=== PATIENT | female | born 1955 | race Hispanic/Latino ===

== ENCOUNTER 2017-10-20 04:15 | Inpatient (IN) | payer OTHER ==
[~2017-10-20] VITALS: Ht 165.1 cm; Wt 88.0 kg
[~2017-10-20 04:15] MED LIST: CEFI400C PO; VITAMIN A PO; VITAMIN B PO; VITAMIN D PO
[2017-10-20] MEDS ORDERED: ONDANSETRON HCL 4 MG/2 ML VIAL ONE ×2 (04:47→09:27)
[2017-10-20 04:50] LABS: BASOPHILS % (AUTO) 0.5 % (0.0-5.0); EOSINOPHILS % (AUTO) 1.8 % (0.0-8.0); HEMATOCRIT 32.3 % (36-48); LYMPHOCYTES % (AUTO) 22.3 % (21.0-51.0); MEAN CORPUSCULAR HEMOGLOBIN 31.1 pg (27.0-33.0); MEAN CORPUSCULAR VOLUME 86.4 fL (79-99); MONOCYTES % (AUTO) 7.4 % (3.0-13.0); PLATELET COUNT (AUTO) 202 K/uL (130-400); RED BLOOD CELL COUNT(AUTO) 3.73 MIL/uL (4.00-5.50); RED CELL DISTRIBUTION WIDTH 12.4 % (11.0-15.5); WHITE BLOOD COUNT (AUTO) 2.8 K/uL (4.8-10.8)
[2017-10-20 05:04] LABS: ALBUMIN 3.7 g/dL (3.5-5.0); BILIRUBIN,DIRECT 0.2 mg/dL (0.0-0.3); BILIRUBIN,TOTAL 0.8 mg/dL (0.2-1.0); CREATININE 0.7 mg/dL (0.5-1.5); POTASSIUM 3.7 mmol/L (3.5-5.1); TOTAL PROTEIN, SERUM 7.4 g/dL (6.0-8.3)
[2017-10-20] MEDS ORDERED: CEFTRIAXONE SODIUM 2 GM VIAL ONE (05:54)
[2017-10-20 05:57] LABS: APPEARANCE,URINE CLEAR (CLEAR); COLOR,URINE YELLOW (YELLOW); GLUCOSE, URINE (UA) NEGATIVE (NEGATIVE); PROTEIN,URINE NEGATIVE (NEGATIVE)
[2017-10-20 05:58] LABS: BILIRUBIN,URINE NEGATIVE (NEGATIVE); KETONES,URINE TRACE mg/dL (NEGATIVE); LEUKOCYTE ESTERASE ,URINE NEGATIVE (NEGATIVE); NITRATE,URINE NEGATIVE (NEGATIVE); OCCULT BLOOD,URINE NEGATIVE (NEGATIVE)
[2017-10-20] MEDS: SODIUM CHLORIDE 0.9% 1000ML 1,000 ML IV SCH ×2 (09:37→18:47)
[2017-10-20] MEDS: ONDANSETRON HCL 4 MG/2 ML VIAL IVP PRN ×2 (09:37→21:36)
[2017-10-20 10:23] VITALS: BP 132/68
[2017-10-20] MEDS ORDERED: PROMETHAZINE HCL 25 MG/ML 1ML AMPULE IM PRN (14:45)
[2017-10-20] MEDS ORDERED: CLOTRIMAZOLE 10 MG TROCHE MM SCH (14:45)
[2017-10-20 15:57] LABS: CREATININE 0.7 mg/dL (0.5-1.5); POTASSIUM 3.9 mmol/L (3.5-5.1)
[2017-10-20 17:26] VITALS: BP 119/71
[2017-10-20 20:15] VITALS: BP 113/50
[2017-10-20] MEDS: OSELTAMIVIR PHOSPHATE 75 MG CAP PO SCH (21:18)
[2017-10-21] VITALS (7 sets, daily range): BP systolic 113–132; BP diastolic 61–75
[2017-10-21] MEDS: SODIUM CHLORIDE 0.9% 1000ML 1,000 ML IV SCH ×3 (03:56→21:37)
[2017-10-21 04:22] LABS: HEMATOCRIT 27.5 % (36-48); MEAN CORPUSCULAR HEMOGLOBIN 32.4 pg (27.0-33.0); MEAN CORPUSCULAR HGB CONC 38.1 g/dL (32.0-36.0); MEAN CORPUSCULAR VOLUME 84.9 fL (79-99); NUCLEATED RED BLOOD CELLS 0.1 % (0.0-0.19); PLATELET COUNT (AUTO) 187 K/uL (130-400); RED BLOOD CELL COUNT(AUTO) 3.24 MIL/uL (4.00-5.50); RED CELL DISTRIBUTION WIDTH 12.3 % (11.0-15.5); WHITE BLOOD COUNT (AUTO) 2.4 K/uL (4.8-10.8)
[2017-10-21 04:30] LABS: CREATININE 0.6 mg/dL (0.5-1.5); POTASSIUM 3.6 mmol/L (3.5-5.1)
[2017-10-21 04:46] LABS: BAND NEUTROPHILS % (MANUAL) 20 % (0-2); LYMPHOCYTES % (MANUAL) 16 % (22-44); MONOCYTES % (MANUAL) 8 % (2-9); SEGMENTED NEUTROPHILS % 56 % (40-70)
[2017-10-21 04:47] LABS: MAN.DIFF COMMENT-IMPRESSION MANUAL DIFFERENTIAL; PLATELET MORPHOLOGY COMMENT ADEQUATE
[2017-10-21] MEDS: OSELTAMIVIR PHOSPHATE 75 MG CAP PO SCH ×2 (09:11→20:34)
[2017-10-21] MEDS ORDERED: LACTULOSE 20 GM/30 ML UDCUP PO PRN (12:00)
[2017-10-21] MEDS ORDERED: DOCUSATE SODIUM 100 MG CAP PO PRN (12:00)
[2017-10-21] MEDS ORDERED: ACETAMINOPHEN 325 MG TAB PO PRN (12:00)
[2017-10-21] MEDS: SODIUM CHLORIDE 1,000 MG TAB PO SCH (13:30)
[2017-10-21] MEDS: ONDANSETRON HCL 4 MG/2 ML VIAL IVP PRN (13:30)
[2017-10-22 03:52] VITALS: BP 111/68
[2017-10-22 04:17] LABS: HEMATOCRIT 29.2 % (36-48); MEAN CORPUSCULAR HEMOGLOBIN 31.2 pg (27.0-33.0); MEAN CORPUSCULAR HGB CONC 36.5 g/dL (32.0-36.0); MEAN CORPUSCULAR VOLUME 85.3 fL (79-99); NUCLEATED RED BLOOD CELLS 0.2 % (0.0-0.19); PLATELET COUNT (AUTO) 201 K/uL (130-400); RED BLOOD CELL COUNT(AUTO) 3.42 MIL/uL (4.00-5.50); RED CELL DISTRIBUTION WIDTH 12.4 % (11.0-15.5); WHITE BLOOD COUNT (AUTO) 2.6 K/uL (4.8-10.8)
[2017-10-22 04:25] LABS: CREATININE 0.6 mg/dL (0.5-1.5); POTASSIUM 3.8 mmol/L (3.5-5.1)
[2017-10-22 07:00] VITALS: BP 123/71
[2017-10-22] MEDS: SODIUM CHLORIDE 1,000 MG TAB PO SCH (08:52)
[2017-10-22] MEDS: SODIUM CHLORIDE 0.9% 1000ML 1,000 ML IV SCH (08:52)
[2017-10-22] MEDS: OSELTAMIVIR PHOSPHATE 75 MG CAP PO SCH ×2 (08:52→20:36)
[2017-10-22 11:00] VITALS: BP 147/77
[2017-10-22] MEDS ORDERED: IBUPROFEN 800 MG TAB PO PRN (11:15)
[2017-10-22 16:00] VITALS: BP 120/71
[2017-10-22 19:41] VITALS: BP 118/73
[2017-10-22 22:52] VITALS: BP 118/71
[2017-10-23 04:07] VITALS: BP 125/71
[2017-10-23 04:40] LABS: MEAN CORPUSCULAR HEMOGLOBIN 31.2 pg (27.0-33.0); MEAN CORPUSCULAR HGB CONC 35.9 g/dL (32.0-36.0); PLATELET COUNT (AUTO) 255 K/uL (130-400); RED BLOOD CELL COUNT(AUTO) 3.33 MIL/uL (4.00-5.50); RED CELL DISTRIBUTION WIDTH 12.3 % (11.0-15.5); WHITE BLOOD COUNT (AUTO) 2.9 K/uL (4.8-10.8)
[2017-10-23 04:46] LABS: CREATININE 0.6 mg/dL (0.5-1.5); POTASSIUM 3.5 mmol/L (3.5-5.1)
[2017-10-23] MEDS: SODIUM CHLORIDE 0.9% 1000ML 1,000 ML IV SCH (05:50)
[2017-10-23 07:26] VITALS: BP 147/72
[2017-10-23] MEDS: SODIUM CHLORIDE 1,000 MG TAB PO SCH (09:16)
[2017-10-23] MEDS: OSELTAMIVIR PHOSPHATE 75 MG CAP PO SCH (09:16)
[2017-10-23 11:15] VITALS: BP 113/67
== END 2017-10-23 11:29 | disposition home or self-care (01) | DRG 153 ==
LOC: EDH 04:15 → EDHIP 06:27 → 2AH 19:36
PROVIDERS: ADMIT Internal Medicine; ATTEND Internal Medicine
DX: J11.1 Influenza due to unidentified influenza virus with other respiratory manifestations (principal); E87.1 Hypo-osmolality and hyponatremia; E86.0 Dehydration; Z87.440 Personal history of urinary (tract) infections; Z88.1 Allergy status to other antibiotic agents
CPT/HCPCS: 36415; 74176; 80048; 80076; 81003; 82550; 83690; 84484; 85025; 85027; 87804; 93005; 99291; J0696; J2405; J7030

== ENCOUNTER 2017-10-23 19:30 | Observation (INO) | payer OTHER ==
[~2017-10-23] VITALS: Ht 165.1 cm; Wt 88.0 kg
[~2017-10-23 19:30] MED LIST changes: -CEFI400C PO
[2017-10-23 21:08] LABS: BASOPHILS % (AUTO) 0.5 % (0.0-5.0); EOSINOPHILS % (AUTO) 0.3 % (0.0-8.0); HEMATOCRIT 28.8 % (36-48); LYMPHOCYTES % (AUTO) 24.3 % (21.0-51.0); MEAN CORPUSCULAR HEMOGLOBIN 32.2 pg (27.0-33.0); MEAN CORPUSCULAR HGB CONC 36.7 g/dL (32.0-36.0); MEAN CORPUSCULAR VOLUME 87.8 fL (79-99); MONOCYTES % (AUTO) 10.5 % (3.0-13.0); NEUTROPHILS % (AUTO) 64.4 % (40.0-77.0); NUCLEATED RED BLOOD CELLS 0.1 % (0.0-0.19); PLATELET COUNT (AUTO) 277 K/uL (130-400); RED BLOOD CELL COUNT(AUTO) 3.27 MIL/uL (4.00-5.50); RED CELL DISTRIBUTION WIDTH 12.7 % (11.0-15.5); WHITE BLOOD COUNT (AUTO) 3.2 K/uL (4.8-10.8)
[2017-10-23 21:15] LABS: CREATININE 0.6 mg/dL (0.5-1.5); POTASSIUM 3.4 mmol/L (3.5-5.1)
[2017-10-23 21:18] LABS: INR 0.99 (0.85-1.15); PARTIAL THROMBOPLASTIN TIME 31.5 SEC (26.3-35.5); PROTHROMBIN TIME 10.4 SEC (9.6-11.6)
[2017-10-23 21:19] LABS: ALBUMIN 3.6 g/dL (3.5-5.0); BILIRUBIN,TOTAL 0.3 mg/dL (0.2-1.0); TOTAL PROTEIN, SERUM 7.7 g/dL (6.0-8.3)
[2017-10-23] MEDS ORDERED: ASPIRIN 325 MG TABLET ONE (22:17)
[2017-10-24] MEDS ORDERED: SODIUM CHLORIDE 0.9% 1000ML 1,000 ML IV ONE (05:55)
[2017-10-24] MEDS ORDERED: SODIUM CHLORIDE 0.9% 1000ML 1,000 ML IV SCH (08:00)
[2017-10-24] MEDS ORDERED: ENOXAPARIN SODIUM 40 MG/0.4 ML SYRINGE SQ ONE (08:06)
[2017-10-24] MEDS ORDERED: PANTOPRAZOLE SODIUM 40 MG TABLET.DR PO ONE (08:06)
[2017-10-24] MEDS ORDERED: OSELTAMIVIR PHOSPHATE 75 MG CAP ONE (08:08)
[2017-10-24 08:15] LABS: HEMATOCRIT 28.7 % (36-48); MEAN CORPUSCULAR HEMOGLOBIN 30.7 pg (27.0-33.0); MEAN CORPUSCULAR VOLUME 87.7 fL (79-99); NUCLEATED RED BLOOD CELLS 0.1 % (0.0-0.19); PLATELET COUNT (AUTO) 264 K/uL (130-400); RED BLOOD CELL COUNT(AUTO) 3.28 MIL/uL (4.00-5.50); RED CELL DISTRIBUTION WIDTH 12.6 % (11.0-15.5); WHITE BLOOD COUNT (AUTO) 2.4 K/uL (4.8-10.8)
[2017-10-24 08:39] LABS: ALBUMIN 3.4 g/dL (3.5-5.0); BILIRUBIN,TOTAL 0.3 mg/dL (0.2-1.0); CREATININE 0.6 mg/dL (0.5-1.5); POTASSIUM 3.9 mmol/L (3.5-5.1); TOTAL PROTEIN, SERUM 7.2 g/dL (6.0-8.3)
[2017-10-24] MEDS ORDERED: OSELTAMIVIR PHOSPHATE 75 MG CAP PO SCH (09:00)
[2017-10-24] MEDS ORDERED: ENOXAPARIN SODIUM 40 MG/0.4 ML SYRINGE SQ SCH (09:00)
[2017-10-24] MEDS ORDERED: PANTOPRAZOLE SODIUM 40 MG TABLET.DR PO SCH (09:00)
[2017-10-24 09:07] LABS: BAND NEUTROPHILS % (MANUAL) 2 % (0-2); BASOPHILS % (MANUAL) 2 % (0-2); EOSINOPHILS % (MANUAL) 2 % (1-6); LYMPHOCYTES % (MANUAL) 33 % (22-44); MAN.DIFF COMMENT-IMPRESSION MANUAL DIFFERENTIAL; MONOCYTES % (MANUAL) 16 % (2-9); PLATELET MORPHOLOGY COMMENT ADEQUATE; SEGMENTED NEUTROPHILS % 45 % (40-70)
== END 2017-10-24 17:07 | disposition home or self-care (01) ==
LOC: EDH 19:30 → EDHIP 10-24 00:38
PROVIDERS: ADMIT Internal Medicine; ATTEND Internal Medicine
DX: R41.82 Altered mental status, unspecified (principal); E87.1 Hypo-osmolality and hyponatremia; J11.1 Influenza due to unidentified influenza virus with other respiratory manifestations; E23.7 Disorder of pituitary gland, unspecified
CPT/HCPCS: 36415 ×2; 70450; 70544; 70547; 70551; 80053 ×2; 82140; 85025 ×2; 85610; 85730; 93005; 99285; G0378 ×16; J7030; J1650

== ENCOUNTER 2017-12-20 15:14 | Emergency (ER) | payer OTHER ==
[2017-12-20 15:50] LABS: APPEARANCE,URINE Clear (CLEAR); BILIRUBIN,URINE Negative (NEGATIVE); COLOR,URINE Yellow (YELLOW); GLUCOSE, URINE (UA) Negative (NEGATIVE); KETONES,URINE Negative (NEGATIVE); LEUKOCYTE ESTERASE ,URINE Moderate (NEGATIVE); NITRATE,URINE Negative (NEGATIVE); OCCULT BLOOD,URINE Negative (NEGATIVE); PROTEIN,URINE Negative (NEGATIVE)
[2017-12-20 15:58] LABS: RBC,URINE None Seen /HPF (0-1)
[2017-12-20 15:59] LABS: BACTERIA,URINE Few /HPF (None Seen)
[2017-12-20 16:08] LABS: BASOPHILS % (AUTO) 0.7 % (0.0-5.0); EOSINOPHILS % (AUTO) 4.2 % (0.0-8.0); HEMATOCRIT 31.5 % (36-48); LYMPHOCYTES % (AUTO) 30.9 % (21.0-51.0); MEAN CORPUSCULAR HEMOGLOBIN 32.6 pg (27.0-33.0); MEAN CORPUSCULAR HGB CONC 36.3 g/dL (32.0-36.0); MEAN CORPUSCULAR VOLUME 89.8 fL (79-99); MONOCYTES % (AUTO) 8.6 % (3.0-13.0); NEUTROPHILS % (AUTO) 55.6 % (40.0-77.0); PLATELET COUNT (AUTO) 234 K/uL (130-400); RED BLOOD CELL COUNT(AUTO) 3.51 MIL/uL (4.00-5.50); RED CELL DISTRIBUTION WIDTH 13.6 % (11.0-15.5); WHITE BLOOD COUNT (AUTO) 4.6 K/uL (4.8-10.8)
[2017-12-20 16:16] LABS: CREATININE 0.7 mg/dL (0.5-1.5); POTASSIUM 3.9 mmol/L (3.5-5.1)
[2017-12-20 16:21] LABS: BILIRUBIN,TOTAL 0.4 mg/dL (0.2-1.0)
== END 2017-12-20 17:03 | disposition home or self-care (01) ==
LOC: EDH 15:14
DX: M25.50 Pain in unspecified joint (principal); R53.83 Other fatigue; Z88.0 Allergy status to penicillin; Z88.2 Allergy status to sulfonamides; Z88.1 Allergy status to other antibiotic agents
CPT/HCPCS: 36415; 80053; 81001; 85025

== ENCOUNTER 2021-08-15 10:16 | Emergency (ER) | payer MEDICARE ==
[~2021-08-15] VITALS: Ht 165.1 cm; Wt 88.5 kg
[~2021-08-15 10:16] MED LIST changes: +ACET-2743 PO
[2021-08-15 10:17] VITALS: BP 160/96
[2021-08-15] MEDS ORDERED: KETOROLAC 15MG/ML VIAL (15MG/ML) ONE (11:14)
[2021-08-15] MEDS ORDERED: KETOROLAC 15MG/ML VIAL (15MG/ML) IV SCH (11:30)
[2021-08-15] MEDS ORDERED: 0.9%NACL 1000ML 1,000 ML IV SCH (11:30)
[2021-08-15 11:33] LABS: APPEARANCE,URINE Clear (CLEAR); BILIRUBIN,URINE Negative (NEGATIVE); COLOR,URINE Yellow (YELLOW); GLUCOSE, URINE (UA) Negative (NEGATIVE); KETONES,URINE Negative (NEGATIVE); LEUKOCYTE ESTERASE ,URINE Small (NEGATIVE); NITRATE,URINE Negative (NEGATIVE); OCCULT BLOOD,URINE Negative (NEGATIVE); PH,URINE 6.5 (5.0-8.0); PROTEIN,URINE Negative (NEGATIVE)
[2021-08-15 11:42] LABS: BASOPHILS % (AUTO) 0.7 % (0.0-5.0); EOSINOPHILS % (AUTO) 0.7 % (0.0-8.0); HEMATOCRIT 36.2 % (36-48); LYMPHOCYTES % (AUTO) 16.1 % (21.0-51.0); MEAN CORPUSCULAR HEMOGLOBIN 29.9 pg (27.0-33.0); MEAN CORPUSCULAR HGB CONC 33.1 g/dL (32.0-36.0); MEAN CORPUSCULAR VOLUME 90.3 fL (79-99); MONOCYTES % (AUTO) 8.5 % (3.0-13.0); NEUTROPHILS % (AUTO) 73.8 % (40.0-77.0); PLATELET COUNT (AUTO) 226 K/uL (130-400); RED BLOOD CELL COUNT(AUTO) 4.01 MIL/uL (4.00-5.50); RED CELL DISTRIBUTION WIDTH 12.4 % (11.0-15.5); WHITE BLOOD COUNT (AUTO) 5.7 K/uL (4.8-10.8)
[2021-08-15 11:59] LABS: ALBUMIN 4.1 g/dL (3.5-5.0); BILIRUBIN,TOTAL 0.5 mg/dL (0.2-1.0); CREATININE 0.7 mg/dL (0.5-1.5); POTASSIUM 4.2 mmol/L (3.5-5.1)
[2021-08-15 12:09] LABS: BACTERIA,URINE Moderate /HPF (None Seen); RBC,URINE 0-1 /HPF (0-1); SQUAMOUS EPITHELIAL CELL,UR Rare /HPF (0-2); WBC,URINE 0-1 /HPF (0-1)
[2021-08-15] MEDS ORDERED: ACET1TAB25 PO (13:52)
== END 2021-08-15 14:09 | disposition home or self-care (01) ==
LOC: EDH 10:16
DX: K40.90 Unilateral inguinal hernia, without obstruction or gangrene, not specified as recurrent (principal); E86.1 Hypovolemia; Z79.1 Long term (current) use of non-steroidal anti-inflammatories (NSAID); Z88.0 Allergy status to penicillin; Z88.1 Allergy status to other antibiotic agents; Z88.2 Allergy status to sulfonamides
CPT/HCPCS: 36415; 74176; 76705; 80053; 81001; 83690; 84484; 85025; 87077; 87088; 87186; 93005; 96361; 96374; 99285; J1885; J7030

== ENCOUNTER 2021-10-01 13:09 | Emergency (ER) | payer MEDICARE ==
[~2021-10-01] VITALS: Ht 165.1 cm; Wt 83.9 kg
[~2021-10-01 13:09] MED LIST changes: +ACET1TAB25 PO
[2021-10-01 14:13] LABS: BASOPHILS % (AUTO) 0.4 % (0.0-5.0); EOSINOPHILS % (AUTO) 0.1 % (0.0-8.0); HEMATOCRIT 35.9 % (36-48); LYMPHOCYTES % (AUTO) 11.1 % (21.0-51.0); MEAN CORPUSCULAR HEMOGLOBIN 30.7 pg (27.0-33.0); MEAN CORPUSCULAR VOLUME 90.2 fL (79-99); MONOCYTES % (AUTO) 5.2 % (3.0-13.0); NEUTROPHILS % (AUTO) 82.7 % (40.0-77.0); PLATELET COUNT (AUTO) 235 K/uL (130-400); RED BLOOD CELL COUNT(AUTO) 3.98 MIL/uL (4.00-5.50); RED CELL DISTRIBUTION WIDTH 12.4 % (11.0-15.5); WHITE BLOOD COUNT (AUTO) 7.5 K/uL (4.8-10.8)
[2021-10-01 14:25] LABS: CREATININE 0.8 mg/dL (0.5-1.5); POTASSIUM 3.8 mmol/L (3.5-5.1)
[2021-10-01] MEDS ORDERED: ONDANSETRON 4MG INJ IVP ONE (14:30)
[2021-10-01] MEDS ORDERED: 0.9%NACL 1000ML 1,000 ML IV ONE (14:30)
[2021-10-01] MEDS ORDERED: MORPHINE 2 MG SYG IVP ONE (14:30)
[2021-10-01] MEDS ORDERED: PROCHLORPERAZINE EDISYLATE 5 MG/ML 2 ML VIAL IVP ONE (14:30)
[2021-10-01 14:42] LABS: BILIRUBIN,TOTAL 0.4 mg/dL (0.2-1.0)
[2021-10-01 15:12] LABS: APPEARANCE,URINE Clear (CLEAR); BILIRUBIN,URINE Negative (NEGATIVE); COLOR,URINE Yellow (YELLOW); GLUCOSE, URINE (UA) Negative (NEGATIVE); KETONES,URINE Trace mg/dL (NEGATIVE); LEUKOCYTE ESTERASE ,URINE Negative (NEGATIVE); NITRATE,URINE Negative (NEGATIVE); OCCULT BLOOD,URINE Negative (NEGATIVE); PH,URINE 7.5 (5.0-8.0); PROTEIN,URINE Negative (NEGATIVE); UROBILINOGEN,URINE 0.2 mg/dL (0.2-1.0)
[2021-10-01] MEDS ORDERED: PROCHLORPERAZINE 10MG/2ML INJ ONE (15:22)
[2021-10-01] MEDS ORDERED: IOHEXOL-350 75 ML VIAL IV ONE (15:26)
[2021-10-01 15:36] VITALS: BP 95/56
[2021-10-01] MEDS ORDERED: KETOROLAC 30MG VIAL (30MG/ML) IV ONE (16:30)
[2021-10-01] MEDS ORDERED: MELO7.5T12 PO (16:37)
[2021-10-01] MEDS ORDERED: ONDA4TAB10 PO (16:37)
[2021-10-01] MEDS ORDERED: DICY20TA2 PO (16:37)
== END 2021-10-01 17:25 | disposition home or self-care (01) ==
LOC: EDH 13:09
DX: K40.90 Unilateral inguinal hernia, without obstruction or gangrene, not specified as recurrent (principal); E86.9 Volume depletion, unspecified; E03.9 Hypothyroidism, unspecified; Z88.1 Allergy status to other antibiotic agents; Z88.0 Allergy status to penicillin; Z88.2 Allergy status to sulfonamides; Z79.899 Other long term (current) drug therapy; Z79.1 Long term (current) use of non-steroidal anti-inflammatories (NSAID)
CPT/HCPCS: 36415; 74177; 80053; 81003; 83690; 84484; 85025; 93005; 96361; 96374; 96375; 99285; J0780; J1885; J2405; J7030; Q9967

== ENCOUNTER 2021-10-21 07:32 | Day surgery (SDC) | payer MEDICARE ==
[2021-10-11 13:39] LABS: BASOPHILS % (AUTO) 0.5 % (0.0-5.0); EOSINOPHILS % (AUTO) 2.5 % (0.0-8.0); HEMATOCRIT 35.3 % (36-48); LYMPHOCYTES % (AUTO) 24.4 % (21.0-51.0); MEAN CORPUSCULAR HGB CONC 33.1 g/dL (32.0-36.0); MEAN CORPUSCULAR VOLUME 90.5 fL (79-99); MONOCYTES % (AUTO) 6.1 % (3.0-13.0); NEUTROPHILS % (AUTO) 66.1 % (40.0-77.0); PLATELET COUNT (AUTO) 248 K/uL (130-400); RED CELL DISTRIBUTION WIDTH 12.5 % (11.0-15.5); WHITE BLOOD COUNT (AUTO) 5.6 K/uL (4.8-10.8)
[2021-10-11 13:52] LABS: CREATININE 0.7 mg/dL (0.5-1.5); POTASSIUM 4.1 mmol/L (3.5-5.1)
[2021-10-13 10:14] VITALS: BP 162/70
[~2021-10-21] VITALS: Ht 165.1 cm; Wt 87.2 kg
[2021-10-21] VITALS (19 sets, daily range): BP systolic 120–144; BP diastolic 65–77
[~2021-10-21 07:32] MED LIST changes: +0.9%NACL 1000ML 1,000 ML IV SCH; -ACET-2743 PO; -ACET1TAB25 PO; +ASCO500T20 PO; +CEFAZOLIN SODIUM 1 GM VIAL IVP ONE; +CHOL100040 PO; +GABA-529 PO; +LEVO50CA4 PO; -VITAMIN A PO; -VITAMIN B PO; +VITAMIN B12 PO; -VITAMIN D PO
[2021-10-21] MEDS ORDERED: CEFAZOLIN SODIUM 1 GM VIAL IVP ONE (08:00)
[2021-10-21] MEDS ORDERED: HYDROCORTISONE SOD SUCCINATE 100 MG/2 ML VIAL IV PRN ×2 (08:00→13:00)
[2021-10-21] MEDS ORDERED: 0.9%NACL 1000ML 1,000 ML IV SCH (08:00)
[2021-10-21] MEDS ORDERED: VANCOMYCIN 1G/250ML KIT 250 ML IV ONE (08:47)
[2021-10-21] MEDS ORDERED: PROPOFOL 10 MG/ML 20ML VIAL IV ONE (10:23)
[2021-10-21] MEDS ORDERED: LIDOCAINE PF 100MG/5ML (2%) SYRINGE 5ML ONE ×2 (10:23→14:41)
[2021-10-21] MEDS ORDERED: SUCCINYLCHOLINE 200MG/10ML SYR ONE (10:23)
[2021-10-21] MEDS ORDERED: FENTANYL CITRATE PF 50 MCG/1 ML 5ML AMP IV ONE (10:24)
[2021-10-21] MEDS ORDERED: ROCURONIUM 10MG/1ML SYR 10 MG/ML ML ONE (10:24)
[2021-10-21] MEDS ORDERED: LIDOCAINE HCL 1% 20 ML VIAL ONE (11:47)
[2021-10-21] MEDS ORDERED: BUPIVACAINE/PF 0.25% 10ML VIAL IJ ONE (11:47)
[2021-10-21] MEDS ORDERED: GLYCOPYRROLATE 1 MG/5 ML SYRINGE ONE ×2 (13:09→14:37)
[2021-10-21] MEDS ORDERED: EPHEDRINE SULFATE 50 MG/ML AMPULE ONE (13:14)
[2021-10-21] MEDS ORDERED: NEOSTIGMINE 5MG/5ML SYR IV ONE (14:37)
[2021-10-21] MEDS ORDERED: ONDANSETRON 4MG INJ ONE (14:40)
[2021-10-21] MEDS ORDERED: KETOROLAC 30MG VIAL (30MG/ML) ONE (14:40)
[2021-10-21] MEDS ORDERED: MEPERIDINE-PF 25 MG/ML SYG ONE (15:39)
== END 2021-10-21 18:33 | disposition home or self-care (01) ==
LOC: DAH 07:32
PROVIDERS: ATTEND Student in an Organized Health Care Education/Training Program
DX: K40.30 Unilateral inguinal hernia, with obstruction, without gangrene, not specified as recurrent (principal); E03.9 Hypothyroidism, unspecified; I49.8 Other specified cardiac arrhythmias; Z88.0 Allergy status to penicillin; Z88.2 Allergy status to sulfonamides; Z88.8 Allergy status to other drugs, medicaments and biological substances; Z79.899 Other long term (current) drug therapy
CPT/HCPCS: 36415; 80048; 85025; 87635; 93005; A4344; C9803; J0330; J1720; J1885; J2001; J2175; J2405; J2704; J2710; J3010; J3370; J3490; J7030; J7120

== ENCOUNTER → 2022-02-07 | Outpatient (CLI) | payer MEDICARE ==
[~2022-02-07] MED LIST changes: -0.9%NACL 1000ML 1,000 ML IV SCH; -CEFAZOLIN SODIUM 1 GM VIAL IVP ONE
== END | disposition home or self-care (01) ==
LOC: RAH 10:00
PROVIDERS: ATTEND Internal Medicine
DX: E04.1 Nontoxic single thyroid nodule (principal)
CPT/HCPCS: 76536

== ENCOUNTER → 2022-12-16 | Outpatient (CLI) | payer MEDICARE | END | disposition home or self-care (01) | LOC: RAH 11:21 | PROVIDERS: ATTEND Physical Medicine & Rehabilitation | DX: M18.12 Unilateral primary osteoarthritis of first carpometacarpal joint, left hand (principal); M43.17 Spondylolisthesis, lumbosacral region; M65.20 Calcific tendinitis, unspecified site | CPT/HCPCS: 73130; 73521 ==

== ENCOUNTER → 2022-12-29 | Outpatient (CLI) | payer MEDICARE | END | disposition home or self-care (01) | LOC: RAH 12:00 | PROVIDERS: ATTEND Physical Medicine & Rehabilitation | DX: S33.140A Subluxation of L4/L5 lumbar vertebra, initial encounter (principal); S76.012A Strain of muscle, fascia and tendon of left hip, initial encounter; M48.061 Spinal stenosis, lumbar region without neurogenic claudication; M65.252 Calcific tendinitis, left thigh; Z88.0 Allergy status to penicillin; Z88.1 Allergy status to other antibiotic agents; Z88.2 Allergy status to sulfonamides; Z88.8 Allergy status to other drugs, medicaments and biological substances; X58.XXXA Exposure to other specified factors, initial encounter; Y93.89 Activity, other specified; Y92.89 Other specified places as the place of occurrence of the external cause; Y99.8 Other external cause status | CPT/HCPCS: 72148 ==

== ENCOUNTER → 2023-04-19 | Outpatient (CLI) | payer MEDICARE | END | disposition home or self-care (01) | LOC: RAH 12:22 | PROVIDERS: ATTEND Physical Medicine & Rehabilitation | DX: M47.817 Spondylosis without myelopathy or radiculopathy, lumbosacral region (principal); M48.061 Spinal stenosis, lumbar region without neurogenic claudication; M43.17 Spondylolisthesis, lumbosacral region | CPT/HCPCS: 72114 ==

== ENCOUNTER 2023-10-21 01:47 | Emergency (ER) | payer MEDICARE ==
[~2023-10-21] VITALS: Ht 165.1 cm; Wt 88.0 kg
[2023-10-21] MEDS ORDERED: 0.9%NACL 1000ML 1,000 ML IV SCH (02:30)
[2023-10-21] MEDS ORDERED: HYDROXYZINE 25 MG TABLET PO ONE (02:30)
[2023-10-21] MEDS ORDERED: DEXAMETHASONE SOD PHOSPHATE 4 MG/ML 1ML VIAL IV ONE (02:30)
[2023-10-21] MEDS ORDERED: FAMOTIDINE 20MG VIAL IV ONE (02:30)
[2023-10-21 02:53] LABS: BASOPHILS # (AUTO) 0.01 K/uL (0.00-0.20); BASOPHILS % (AUTO) 0.1 % (0.0-5.0); HEMATOCRIT 40.6 % (36-48); IMMATURE GRANULOCYTE ABSOLUTE 0.04 K/uL (0-1); LYMPHOCYTES # (AUTO) 0.6 K/uL (1.0-4.8); LYMPHOCYTES % (AUTO) 5.1 % (21.0-51.0); MEAN CORPUSCULAR HEMOGLOBIN 30.8 pg (27.0-33.0); MEAN CORPUSCULAR VOLUME 90.6 fL (79-99); MONOCYTES # (AUTO) 0.5 K/uL (0.1-1.0); MONOCYTES % (AUTO) 4.2 % (3.0-13.0); NEUTROPHILS # (AUTO) 9.9 K/uL (1.8-7.7); NEUTROPHILS % (AUTO) 90.2 % (40.0-77.0); PLATELET COUNT (AUTO) 253 K/uL (130-400); RED BLOOD CELL COUNT(AUTO) 4.48 MIL/uL (4.00-5.50); RED CELL DISTRIBUTION WIDTH 12.3 % (11.0-15.5); WHITE BLOOD COUNT (AUTO) 10.9 K/uL (4.8-10.8)
[2023-10-21 03:00] LABS: CREATININE 1.1 mg/dL (0.5-1.5)
[2023-10-21] MEDS ORDERED: HYDR50CA50 PO (03:07)
[2023-10-21] MEDS ORDERED: CETI10CA5 PO (03:08)
[2023-10-21] MEDS ORDERED: EPIN0.3P3 IJ (03:08)
[2023-10-21 04:04] LABS: WBC MORPHOLOGY CONSISTENT W/DIFF
[2023-10-21 04:13] VITALS: BP 121/70; PULSE 70; RESP 18; O2SAT 97
== END 2023-10-21 04:34 | disposition home or self-care (01) ==
LOC: EDH 01:47
DX: T78.49XA Other allergy, initial encounter (principal); E03.9 Hypothyroidism, unspecified; Z79.899 Other long term (current) drug therapy; Z98.890 Other specified postprocedural states; Z88.0 Allergy status to penicillin; Z88.1 Allergy status to other antibiotic agents; Z88.2 Allergy status to sulfonamides; Z88.8 Allergy status to other drugs, medicaments and biological substances; X58.XXXA Exposure to other specified factors, initial encounter
CPT/HCPCS: 99284; 96374; 96361; 96375; 80048; 85025; 36415; J1100; J7120; J3490